=== PATIENT | female | born 1960 | race Caucasian/White ===

== ENCOUNTER → 2016-12-21 06:04 | Day surgery (SDC) | payer BC ==
--- NOTE | 2016-12-11 22:40 | HP ---
HISTORY AND PHYSICAL: DATE OF OFFICE VISIT: 12/11/16 DATE OF ADMISSION/SURGERY: 12/21/16 SURGEON: Nilsa Sr MD PROCEDURE: Left knee arthroscopy with partial meniscectomy, possible chondroplasty, and possible synovectomy. CHIEF COMPLAINT: Left knee pain. HISTORY OF PRESENT ILLNESS: Ms. Carver is a 56-year-old female with complaints of left knee pain. She has failed conservative management and has elected to proceed with left knee arthroscopy with partial meniscectomy, possible chondroplasty, and possible synovectomy. This surgery is scheduled for 12/21/[address] Sr. PAST MEDICAL HISTORY: Hypertension. PAST SURGICAL HISTORY: She had a cyst removed from her left breast. CURRENT MEDICATIONS: 1. Lisinopril. 2. Aspirin. 3. Calcium. 4. Vitamin D. 5. Multivitamin. 6. Claritin. 7. Augmentin. ALLERGIES: SULFA DRUGS. FAMILY HISTORY: Heart disease, diabetes, and an unknown UNION ORGANISER cancer. SOCIAL HISTORY: She is a 56-year-old female. She lives alone. 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 She denies use of drugs. She does not smoke. REVIEW OF SYSTEMS: A complete 14-point review of systems was reviewed with the patient and all was negative or noncontributory. PHYSICAL EXAMINATION GENERAL: She is well developed, well nourished. She is no acute distress. VITAL SIGNS: She stands 5 feet 4 inches tall, weights 225 pounds, her blood pressure is 147/84, and heart rate is 57. HEENT: Normocephalic, atraumatic. NECK: Supple. No palpable lymph nodes. Trachea is midline. PULMONARY: Lungs are clear to auscultation bilaterally. No wheezes, rhonchi, or rales. CARDIO: Regular rate and rhythm. Strong S1, S2. No murmurs, gallops, or rubs. No peripheral edema. ABDOMEN: Soft, nontender, nondistended. NEUROLOGICAL: She is alert and oriented x3. Cranial nerves II through XII are intact. MUSCULOSKELETAL: Left lower extremity, the skin is intact. She has tenderness over the medial and lateral joint line. She has full range of motion. 2+ dorsalis pedis pulses. Her lower extremity muscle group strengths are intact at 5/5. She has intact sensation. ASSESSMENT AND PLAN: Ms. Carver is a 56-year-old female with complaints of a left knee pain. The MRI shows a small tear of the posterior horn of the medial meniscus. She has elected to proceed with left knee arthroscopy with partial meniscectomy, possible chondroplasty, and possible synovectomy. The surgery is scheduled for 12/21/[address] Sr. Percocet was sent to her pharmacy for postoperative pain control. She was asked to stop taking her aspirin 1 week prior to the surgery. She can restart her aspirin on postop day #1. She will see Dr. Sr back in 10 to 14 days after the surgery. YOUSUF NAIK [id number]/[facility] #: [id number] MTDD
[~2016-12-21 06:04] MED LIST: Buffered Lidocaine 1% SYRIN* 3 ML/SYR SYRINGE INTRADERM ONE; Bupivacaine 0.5% SDV PF* 30 ML VIAL ONE; Dexamethasone IV* 4 MG/ML 1 ML (4 MG) IV SLOW PU ONE; Dexamethasone IV* 4 MG/ML 1 ML (4 MG) ONE; DiMENhydriNATE IV* 50 MG/ML VIAL IV PUSH PRN; EPINEPHrine AMP 1 MG/ML ONE; Famotidine IV* 10 MG/ML 2 ML (20 mg) IV ONE; Famotidine IV* 10 MG/ML 2 ML (20 mg) ONE; HYDROmorphone* 1 MG/ML 1 ML SYR IV PRN; HYDROmorphone* 1 MG/ML 1 ML SYR ONE; Ketorolac INJ* 30 MG/ML 1 ML VIAL ONE; Lidocaine 2% PF* 5 ML VIAL ONE; Midazolam* 1 MG/ML 2 ML VIAL (2 MG) ONE; Ondansetron INJ* 2 MG/ML VIAL IV PRN; Ondansetron INJ* 2 MG/ML VIAL ONE; PROCHLORPERAZINE INJ 5 MG/ML 2 ML VIAL IV PRN; Propofol* 10 MG/ML 20 ML BTL IV PUSH ONE; ceFAZolin 2 GM PREMIX(*) 2 GM/50 ML BAG IVPB ONE; fentaNYL* 50 MCG/ML 2 ML VIAL (100 MCG VIAL) ONE; methylPREDNISolone ACETATE 80* 80 MG/ML 1 ML VIAL ONE; oxyCODONE/Acetamin 5/325 MG* TAB ONE
[2016-12-21] MEDS: fentaNYL* 50 MCG/ML 2 ML VIAL (100 MCG VIAL) IV PRN ×2 (09:34→09:48)
[2016-12-21 10:40] VITALS: BP 133/80
--- NOTE | 2016-12-22 02:42 | OP ---
DATE OF OPERATION: 12/21/16 [facility] DATE OF : 56 SURGEON: Nilsa rS MD TWISTHAND: YOUSUF Cerda ANESTHESIOLOGIST: Dr. Patel. ANESTHESIA: General. PRE-OP DIAGNOSES: Left knee pain and medial meniscal tear. POST-OP DIAGNOSES: Left knee pain and medial meniscal tear with anterior synovitis in the medial plica. OPERATIVE PROCEDURE: Left knee arthroscopy with partial medial meniscectomy, anterior synovectomy. INDICATIONS: Ms. Carver is a 56-year-old female who has some mild arthritic changes known on x-ray. She developed posteromedial pain and meniscal-type symptoms. Medial meniscal tear was confirmed on MRI. Due to continued pain and decreased quality of life despite conservative treatment, the patient elected to have left knee arthroscopy with partial medial meniscectomy, possible chondroplasty, and possible synovectomy. Informed consent was obtained from the patient. She understood the risks of surgery included but were not limited to bleeding, infection, damage to nearby structures, continued pain, need for further surgery, stroke, heart attack, blood clot, and . She wished to proceed. COMPLICATIONS: None. EBL: Less than 25 cc. SPECIMEN: None. INTRAOPERATIVE FINDINGS: Intraoperatively, the patient was noted to have a radial- type tear along the posteromedial meniscus. This was in the white- white and white- red zone. She had grade 2 and 3 Outerbridge cartilage changes in the patellofemoral compartment involving the medial and lateral patellar facet. Overall, there were minimal degenerative changes in the joint. Significant amounts of anterior and anteromedial synovitis and a small plica along the anteromedial joint line. DESCRIPTION OF PROCEDURE: Ms. Carver was identified in the preanesthesia unit. Her left lower extremity was marked as the correct operative side. Informed consent was signed and placed in the chart. The patient was taken to the operating room and placed under general anesthesia. The left lower extremity was prepped and draped in the usual sterile fashion. Preop time-out was made to correctly identify the patient, side, and site. Appropriate perioperative antibiotics were given within 1 hour of incision. A 0.5-cm standard anterolateral portal incision was made with a 15 blade and carried down through the capsule. Trocar was introduced. As soon as the light and water sources were turned on, there was immediate visualization of the supra -patellar pouch. A tour of the knee joint was performed. Suprapatellar pouch had no obvious abnormality. Patellofemoral compartment showed some grade 2 and 3 minimal degenerative changes involving the medial and lateral patellar facets. There was a small medial plica. Significant amount of anterior synovitis was noted. The medial compartment showed no significant degenerative changes. Posteromedial meniscus was difficult to visualize. ACL appeared to be intact. The knee was placed in a figure-of-4 position. Lateral compartment showed no significant degenerative changes or meniscal tear. Under direct visualization, a medial portal incision was made with a 15 blade. A probe was introduced. A second tour of the knee joint was performed. There was noted that there was a radial-type tear in the posterior horn of the medial meniscus. This was in the white-white and white-red zone. Straight biter as well as shaver was used to perform partial medial meniscectomy. A smooth border of the meniscus was obtained. A probe confirmed there was no further meniscal tear or displaced fragments. Shaver and radiofrequency ablation wand were used to excise the medial plica and anterior synovitis. The knee was copiously irrigated with sterile saline. All instruments were carefully removed. The incisions were closed using 3-0 nylon suture. An intraarticular injection of 80 mg of Depo-Medrol and 6 cc of 0.25% Marcaine was placed in the knee joint. The patient's incisions were covered with sterile Xeroform, 4x4s, and Webril. Carmelo wrap and cold pack were placed over this. The patient's anesthesia was reversed without difficulty. She was taken to the PACU in stable condition. Intended weightbearing will be weightbearing as tolerated. Intended DVT prophylaxis will be aspirin. The patient will follow up in 2 weeks' time for suture removal. [id number]/[facility] #: [id number] [facility]ITAL[facility]
== END | disposition home or self-care (01) ==
LOC: OR 06:04
PROVIDERS: ATTEND Orthopaedic Surgery Adult Reconstructive Orthopaedic Surgery
DX: M23.204 Derangement of unspecified medial meniscus due to old tear or injury, left knee (principal); M65.862 Other synovitis and tenosynovitis, left lower leg; I10 Essential (primary) hypertension; R00.2 Palpitations
CPT/HCPCS: A9270-GY; J0171; J0690; J1040; J1100; J1170; J1885; J2250; J2405; J2704; J3010

== ENCOUNTER 2018-10-09 09:33 | Inpatient (IN) | payer BC ==
--- NOTE | 2018-09-28 11:41 | HP ---
AMENDED REPORT NOW INCLUDES DESIGNATED COSIGNER HISTORY AND PHYSICAL: DATE OF ADMISSION/SURGERY: 10/09/18 DATE OF OFFICE VISIT: 09/27/18 SURGEON: Nilsa Sr MD.* (DICTATED BY YOUSUF NAIK) PROCEDURE: Left total knee arthroplasty. CHIEF COMPLAINT: Left knee pain. HISTORY OF PRESENT ILLNESS: Ms. Carver is a 58-year-old female with continued complaints of left knee pain. She has failed conservative treatment and elected to proceed with a left total knee arthroplasty. PAST MEDICAL HISTORY: Hypertension. PAST SURGICAL HISTORY: 1. Left knee scope. 2. Appendectomy. 3. Laparoscopy. 4. Left breast growth removal. CURRENT MEDICATIONS: 1. Meloxicam 15 mg daily. 2. Lisinopril/hydrochlorothiazide 10/25 mg. 3. Aspirin 81 mg. 4. Wellbutrin 150 mg. ALLERGIES: To SULFA ANTIBIOTICS and ASPIRIN FULL DOSE. FAMILY HISTORY: Diabetes, coronary artery disease, rheumatoid arthritis, uterine cancer, and stroke. SOCIAL HISTORY: She is a 58-year-old female. She lives with her daughter. She does not smoke or use drugs. Uses occasional alcohol. REVIEW OF SYSTEMS: A complete 14-point review of systems was reviewed with the patient. It was all negative or noncontributory. She denies history of DVT, PE , hepatitis, HIV, or anesthesia problems. PHYSICAL EXAMINATION GENERAL: She is well developed, well nourished, in no acute distress. VITAL SIGNS: She stands 63 inches tall, weighs 236 pounds. Her blood pressure is 132/86. Her heart rate is 72. HEENT: Normocephalic, atraumatic. NECK: Supple. No palpable lymph nodes. PULMONARY: The lungs are clear to auscultation bilaterally. CARDIO: Regular rate and rhythm. Strong S1, S2. ABDOMEN: Soft, nontender, nondistended. NEUROLOGICAL: She is alert and oriented x3. MUSCULOSKELETAL: Left lower extremity: The skin is intact. There are no open wounds or abrasions. She has a moderate joint effusion. Some tenderness over the medial and lateral joint line. Range of motion is 10 to 120 degrees of flexion with patellofemoral crepitus. ASSESSMENT AND PLAN: Ms. Carver is a 58-year-old female with end-stage osteoarthritis of the left knee. She has failed conservative treatment and elected to proceed with a left total knee arthroplasty. The surgery is scheduled for 10/09/[address] Sr discussed the risks and benefits of the surgery at today's visit and all of her questions were answered. She will follow up with Dr. Sr 2 weeks after the surgery. YOUSUF NAIK [id number]/[facility] #: [id number] MTDDayana
[~2018-10-09 09:33] MED LIST changes: +Buffered Lidocaine 1% SYRIN* 1 ML/SYRINGE INTRADERM ONE; -Buffered Lidocaine 1% SYRIN* 3 ML/SYR SYRINGE INTRADERM ONE; -Bupivacaine 0.5% SDV PF* 30 ML VIAL ONE; -Dexamethasone IV* 4 MG/ML 1 ML (4 MG) ONE; -DiMENhydriNATE IV* 50 MG/ML VIAL IV PUSH PRN; -EPINEPHrine AMP 1 MG/ML ONE; -Famotidine IV* 10 MG/ML 2 ML (20 mg) ONE; +Gabapentin CAP(*) 300 MG PO ONE; -HYDROmorphone* 1 MG/ML 1 ML SYR IV PRN; -HYDROmorphone* 1 MG/ML 1 ML SYR ONE; -Ketorolac INJ* 30 MG/ML 1 ML VIAL ONE; +Lactated Ringers 1000 ML Bag* 1,000 ML IV SCH; -Lidocaine 2% PF* 5 ML VIAL ONE; -Midazolam* 1 MG/ML 2 ML VIAL (2 MG) ONE; -Ondansetron INJ* 2 MG/ML VIAL IV PRN; -Ondansetron INJ* 2 MG/ML VIAL ONE; -PROCHLORPERAZINE INJ 5 MG/ML 2 ML VIAL IV PRN; -Propofol* 10 MG/ML 20 ML BTL IV PUSH ONE; +Scopolamine 1.5 mg* PATCH TRANSDERM ONE; +Tranexamic Acid 1,000 MG in NS 0.9% 50 ML* (outpatient use) IV SCH; -ceFAZolin 2 GM PREMIX(*) 2 GM/50 ML BAG IVPB ONE; +celeCOXIB CAP* 200 MG PO ONE; -fentaNYL* 50 MCG/ML 2 ML VIAL (100 MCG VIAL) ONE; -methylPREDNISolone ACETATE 80* 80 MG/ML 1 ML VIAL ONE; -oxyCODONE/Acetamin 5/325 MG* TAB ONE
[2018-10-09] MEDS ORDERED: fentaNYL* 50 MCG/ML 2 ML VIAL (100 MCG VIAL) ONE ×4 (09:37→14:37)
[2018-10-09] MEDS ORDERED: Midazolam* 1 MG/ML 2 ML VIAL (2 MG) ONE (09:37)
--- OUTSIDE RECORDS SUMMARY | 2018-10-09 09:37 | XMS REPORT | Continuity of Care Document ---
:1960 External Reference #:[id number] Author Name Maria Felix Care Team Providers Name Role Phone Aleyda Hernandez FNP Primary Care Physician Unavailable Payers Type Date Identification Numbers Payment Provider Subscriber Effective: 2016 Policy Number: [id number] [facility] Holly Carver PayID: [id number] [address] [place] [address] Advance Directives Description No Information Available Problems Date Description Provider Status Onset: 08/30/2016 Localized, primary osteoarthritis Nilsa Sr M.D. 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 every day Lisinopril Active Tablets 10mg 1 by Unknown 00 mouth every day Bupropion HCL Active Unknown 00 Percocet 12/12/19 Hx Tablets 5-325mg 60tabs 1-2 by Nilsa 17 - raj Sr M.D. 02/02/20 every 4-6 17 hours as needed pain Naproxen 08/30/20 Hx Tablets 500mg 30tabs 1 tablet M25.562 Nilsa 16 - with food Alicia Sr 02/02/20 by mouth 17 twice a day Aspirin Hx 1 by Unknown 00 - mouth 07/28/20 every day 18 Calcium + D Hx Unknown 07/28/20 18 Multivitamin Hx Unknown 07/28/20 18 Claritin Hx Unknown 07/28/20 18 Augmentin Hx Unknown 02/02/20 17 Vitamin D Hx Unknown 07/28/20 18 Fluid Pill Hx Unknown 09/26/19 19 Immunizations Description No Information Available Vital Signs Date Vital Result Comment 09/27/2018 3:09pm Height 62.75 inches 5'2.75" Weight 236.00 lb Heart Rate 72 /min BP Systolic 132 mmHg BP Diastolic 86 mmHg Respiratory Rate 18 /min Body Temperature 97.9 F Pain Level 0 BMI (Body Mass Index) 42.1 kg/m2 08/28/2018 8:18am Height 62.75 inches 5'2.75" Weight 236.00 lb Heart Rate 88 /min BP Systolic 126 mmHg BP Diastolic 80 mmHg BMI (Body Mass Index) 42.1 kg/m2 07/29/2018 11:17am Height 62.75 inches 5'2.75" Weight 234.00 lb Heart Rate 88 /min BP Systolic 130 mmHg BP Diastolic 78 mmHg BMI (Body Mass Index) 41.8 kg/m2 02/02/2017 8:02am Height 63.5 inches 5'3.50" Weight 225.00 lb Heart Rate 73 /min BP Systolic 138 mmHg BP Diastolic 90 mmHg Pain Level 0 BMI (Body Mass Index) 39.2 kg/m2 01/03/2017 8:11am Height 64 inches 5'4" Heart Rate 64 /min BP Systolic Sitting 104 mmHg BP Diastolic Sitting 72 mmHg Respiratory Rate 16 /min Body Temperature 97.6 F Pain Level 0 12/11/2016 9:19am Height 64 inches 5'4" Weight 226.00 lb Heart Rate 57 /min BP Systolic 147 mmHg BP Diastolic 84 mmHg Body Temperature 97.5 F BMI (Body Mass Index) 38.8 kg/m2 11/01/2016 9:17am Height 64.25 inches 5'4.25" Weight 220.00 lb Heart Rate 72 /min BP Systolic 128 mmHg BP Diastolic 70 mmHg Pain Level 8 BMI (Body Mass Index) 37.5 kg/m2 10/02/2016 8:12am Height 64.25 inches 5'4.25" Heart Rate 64 /min BP Systolic 126 mmHg BP Diastolic 76 mmHg Pain Level 3 08/30/2016 8:01am Height 64.25 inches 5'4.25" Weight 229.00 lb Heart Rate 71 /min BP Systolic 128 mmHg BP Diastolic 68 mmHg BMI (Body Mass Index) 39.0 kg/m2 Results Test Date Facility Test Result H/L Range Note Inr/Protime 09/30/2018 [facility] Inr 0.94 N 0.77-1.[address] [place] [address] [phone] Laboratory test 09/30/2018 [facility] Partial 34.4 seconds N 26.0-36.[address] [address] PTT [phone] CBC Auto Diff 09/30/2018 [facility] White Blood 7.4 10^3/uL N 3.5-10.[address] [place] [address] [phone] Red Blood Count 4.46 10^6/uL N 4.00-5.40 Hemoglobin 14.5 g/dL N 12.0-16.0 Hematocrit 44 % N 35-47 Mean Corpuscular Volume 99 fL High 80-97 Mean Corpuscular Hemoglobin 33 pg High 27-31 Mean Corpuscular HGB Conc 33 g/dL N 31-36 Red Cell Distribution Width 13 % N 10.5-15 Platelet Count 272 10^3/uL N 150-450 Mean Platelet Volume 8.1 fL N 7.4-10.4 Abs Neutrophils 4.2 10^3/uL N 1.5-7.7 Abs Lymphocytes 2.2 10^3/uL N 1.0-4.8 Abs Monocytes 0.6 10^3/uL N 0-0.8 Abs Eosinophils 0.3 10^3/uL N 0-0.6 Abs Basophils 0 10^3/uL N 0-0.2 Abs Nucleated RBC 0 10^3/uL Granulocyte % 57.0 % Lymphocyte % 30.3 % Monocyte % 8.2 % Eosinophil % 4.0 % Basophil % 0.5 % Nucleated Red Blood Cells % 0 Comp Metabolic Panel 09/30/2018 [facility] Sodium 140 mmol/L N 135-145 [address] [place] [address] [phone] Potassium 4.5 mmol/L N 3.5-5.0 Chloride 103 mmol/L N 101-111 Co2 Carbon Dioxide 27 mmol/L N 22-32 Anion Gap 10 mmol/L N 2-11 Glucose 102 mg/dL High 70-100 Blood Urea Nitrogen 25 mg/dL High 6-24 Creatinine 0.83 mg/dL N 0.51-0.95 BUN/Creatinine Ratio 30.1 High 8-20 Calcium 9.7 mg/dL N 8.6-10.3 Total Protein 7.8 g/dL N 6.4-8.9 Albumin 4.4 g/dL N 3.2-5.2 Globulin 3.4 g/dL N 2-4 Albumin/Globulin Ratio 1.3 N 1-3 Total Bilirubin 0.40 mg/dL N 0.2-1.0 Alkaline Phosphatase 80 U/L N 34-104 Alt 47 U/L N 7-52 Ast 30 U/L N 13-39 Egfr Non- 70.1 >60 Egfr 84.8 >60 1 Type & Screen 09/30/2018 [facility] Patient Blood Type A Negative [address] [place] [address] [phone] Antibody Screen NEGATIVE Urinalysis Profile 09/30/2018 [facility] Urine Color Yellow [address] [place] [address] [phone] Urine Appearance Clear Urine Specific [place] 1.019 N 1.010-1.030 Urine pH 6.0 N 5-9 Urine Urobilinogen Negative Negative Urine Ketones Negative Negative Urine Protein Negative Negative Urine Leukocytes Negative Negative Urine Blood Negative Negative Urine Nitrite Negative Negative Urine Bilirubin Negative Negative Urine Glucose Negative Negative Urine Culture And 09/30/2018 [facility] Urine Culture SEE RESULT [address] [place] [address] [phone] 1 Because ethnic data is not always readily available, this report includes an eGFR for both -Americans and non- Americans. The National Kidney Disease Education Program (NKDEP) does not endorse the use of the MDRD equation for patients that are not between the ages of 18 and 70, are , have extremes of body size, muscle mass, or nutritional status, or are non- or non-. According to the National Kidney Foundation, irrespective of diagnosis, the stage of the disease is based on the level of kidney function: Stage Description GFR(mL/min/1.73 m(2)) 1 Kidney damage with normal or decreased GFR 90 2 Kidney damage with mild decrease in GFR 60-89 3 Moderate decrease in GFR 30-59 4 Severe decrease in GFR 15-29 5 Kidney failure <15 (or dialysis) 2 SEE RESULT BELOW Name: HOLLY CARVER : [address]: Nilsa Sr MD Acct: [id number] Unit: [id number] AGE: 58 Location: [facility] Re09/30/18 SEX: F Status: REG REF SPEC: [id number] HAILY: 09/30/[address] [facility] [address]: Nilsa Sr MD REQ: [id number] RECD: 09/30/181014 STATUS: SIENA FISHER DR: Aleyda Hernandez GLOBAL RECRUITER _ SOURCE: URINE SPDESC: ORDERED: Urine Culture QUERIES: Urine Source: Clean Catch Procedure Result Reported Site Urine Culture Final 10/01/18- 901 ML No growth of clinically significant organisms * ML - Main Lab . END OF REPORT DEPARTMENT OF PATHOLOGY, [address] [place] [address] Albert Iverson M.D. Director [facility] # [id number] Procedures Date Code Description Status 12/21/2016 59304 Arthroscopy,Knee,Meniscectomy Medial Or Lateral Completed 12/21/2016 69356 Arthroscopy,Knee,Meniscectomy Medial Or Lateral Completed 10/11/2015 12841 Treadmill Interp/Report Only Completed 10/11/2015 61978 Stress Test Supervsn W/Out I/R Completed Encounters Type Date Location Provider Dx Diagnosis Office Visit 08/28/2018 Orthopedic Nilsa Sr, M25.462 Effusion, left 8:15a [facility] GianALeila Vargas knee M25.562 Pain in left knee M17.12 Unilateral primary osteoarthritis, left knee Office Visit 07/29/2018 11:00a Orthopedic Nilsadavid Sr, M25.462 Effusion, left [facility]Leila knee [facility] M25.562 Pain in left knee M17.12 Unilateral primary osteoarthritis, left knee Office Visit 11/01/2016 Orthopedic Nilsa M17.12 Unilateral primary 9:15a [facility] Alicia Sr osteoarthritis, left [facility] knee M25.562 Pain in left knee M25.462 Effusion, left knee S83.242A Oth tear of medial meniscus, current injury, left knee, init Office Visit 10/02/2016 Orthopedic Nilsa M17.12 Unilateral primary 8:00a [facility] Alicia Sr osteoarthritis, left [facility] knee M25.562 Pain in left knee Office Visit 08/30/2016 8:30a [facility] Nilsa Sr M25.562 Pain in left Of C.M.Juana. FlakitoDLeila knee M25.462 Effusion, left knee M17.12 Unilateral primary osteoarthritis, left knee Office Visit 10/11/2015 [facility] R07.2 Precordial pain 8:52a Assocvianey II, M.D. Hospitalists I10 Essential (primary) hypertension Plan of Treatment Future Appointment(s):10/21/2018 10:15 am - Nilsa Sr M.D. at [facility]10/09/2018 1:30 pm - CARISA Gongora at [facility]10/09/2018 1:30 pm - YOUSUF Jeter at [facility]10/09/2018 1:30 pm - Nilsa Sr M.D. at [facility]09/27/2018 - Nilsa Sr M.D.M25.462 Effusion, left kneeFollow up:Follow up: 10-14 days xervjqF63.562 Pain in left kneeM17.12 Unilateral primary osteoarthritis, left knee
--- OUTSIDE RECORDS SUMMARY | 2018-10-09 09:37 | XMS REPORT | Continuity of Care Document ---
:1960 External Reference #:[id number] Author Name Brady Dahiana Care Team Providers Name Role Phone Aleyda Hernandez FNP Primary Care Physician Unavailable Payers Type Date Identification Numbers Payment Provider Subscriber Effective: 2016 Policy Number: [id number] [facility] Holly Carver PayID: [id number] [address] [place] [address] Advance Directives Description No Information Available Problems Date Description Provider Status Onset: 08/30/2016 Localized, primary osteoarthritis Nilsa Sr M.D. 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 05/11/20 every 4-6 17 hours as needed pain [...] BMI (Body Mass Index) 39.0 kg/m2 Results Description No Information Available Procedures Date Code Description Status 12/21/2016 93751 Arthroscopy,Knee,Meniscectomy Medial Or Lateral Completed 12/21/2016 52018 Arthroscopy,Knee,Meniscectomy Medial Or Lateral Completed 10/11/2015 61743 Treadmill Interp/Report Only Completed 10/11/2015 01824 Stress Test Supervsn W/Out I/R Completed Encounters Type Date Location Provider Dx Diagnosis Office Visit 08/28/2018 Bret Briceno5.462 Effusion, left 8:15a [facility] Glenna Vargas knee M25.562 Pain in left knee M17.12 Unilateral primary osteoarthritis, left knee Office Visit 07/29/2018 11:00a Orthopedic Bret Morales5.462 Effusion, left Services Leon Vargas knee [facility] M25.562 Pain in left knee M17.12 Unilateral primary osteoarthritis, left knee Office Visit 11/01/2016 Orthopedic Nilsa M17.12 Unilateral primary 9:15a Services [facility] Alicia Sr osteoarthritis, left [facility]. knee M25.562 Pain in left knee M25.462 Effusion, left knee S83.242A Oth tear of medial meniscus, current injury, left knee, init Office Visit 10/02/2016 Mian Ash M17.12 Unilateral primary 8:00a Services Of Alicia Sr osteoarthritis, left [facility]. knee M25.562 Pain in left knee Office Visit 08/30/2016 8:30a [facility] Nilsa Remberto, M25.562 Pain in left Of C.M.Sugey Vargas knee M25.462 Effusion, left knee M17.12 Unilateral primary osteoarthritis, left knee [facility] R07.2 Precordial pain 8:52a vianey Sandoval II, M.D. Hospitalists I10 Essential (primary) hypertension Plan of Treatment Future Appointment(s):10/21/2018 10:15 am - Nilsa Sr M.D. at [facility]10/09/2018 1:30 pm - CARISA Gongora at [facility]10/09/2018 1:30 pm - YOUSUF Jeter at [facility]10/09/2018 1:30 pm - Nilsa Sr M.D. at [facility]09/27/2018 - Nilsa Sr M.D.M25.462 Effusion, left kneeFollow up:Follow up: 10-14 days ryqnvyW82.562 Pain in left kneeM17.12 Unilateral primary osteoarthritis, left knee
[2018-10-09] MEDS ORDERED: Famotidine IV* 10 MG/ML 2 ML (20 mg) ONE (10:03)
[2018-10-09] MEDS ORDERED: celeCOXIB CAP* 100 MG ONE (10:03)
[2018-10-09] MEDS ORDERED: Dexamethasone IV* 4 MG/ML 1 ML (4 MG) ONE (10:03)
[2018-10-09] MEDS ORDERED: Gabapentin CAP(*) 300 MG ONE (10:04)
[2018-10-09] MEDS ORDERED: ceFAZolin 2 GM PREMIX in ORs 2 GM/50 ML BAG IVPB ONE (10:04)
[2018-10-09] MEDS ORDERED: Buffered Lidocaine 1% SYRIN* 1 ML/SYRINGE INTRADERM ONE (10:04)
[2018-10-09] MEDS ORDERED: Scopolamine 1.5 mg* PATCH ONE (10:04)
[2018-10-09] MEDS ORDERED: Morphine VIAL* 4 MG/ML VIAL (1 ml vial) IV PRN ×2 (10:18→13:44)
[2018-10-09] MEDS ORDERED: Naloxone* 0.4 MG/ML 1 ML VIAL IV PRN (10:18)
[2018-10-09] MEDS ORDERED: oxyCODONE/Acetamin 5/325 MG* TAB PO PRN ×2 (10:18→13:58)
[2018-10-09] MEDS ORDERED: PROCHLORPERAZINE INJ 5 MG/ML 2 ML VIAL IV PRN (10:18)
[2018-10-09] MEDS ORDERED: Bupivacaine 0.5%* 50 ML VIAL ONE (10:31)
[2018-10-09] MEDS ORDERED: ROPIVACAINE 5 MG/ML 30 ML BTL (0.5%) ONE (10:45)
[2018-10-09] MEDS ORDERED: Propofol* 10 MG/ML 20 ML BTL ONE (11:16)
[2018-10-09] MEDS ORDERED: Lidocaine 2% PF * 5 ML VIAL ONE (11:16)
[2018-10-09] MEDS ORDERED: EPHEDrine (Pressors)* 50 MG/ML VIAL ONE (11:27)
[2018-10-09] MEDS ORDERED: KETAMINE HCL* 50 MG/ML 10 ML VIAL ONE (11:31)
[2018-10-09] MEDS ORDERED: Ondansetron INJ* 2 MG/ML VIAL ONE (12:46)
[2018-10-09] MEDS ORDERED: Cyclobenzaprine TAB* 10 MG PO PRN (13:44)
[2018-10-09] MEDS ORDERED: Magnesium Hydroxide LIQ* 30 ML UDC PO PRN (13:44)
[2018-10-09] MEDS ORDERED: diPHENhydraMINE PO* 25 MG PO PRN (13:44)
[2018-10-09] MEDS ORDERED: Ondansetron INJ* 2 MG/ML VIAL IV PRN (13:44)
[2018-10-09] MEDS ORDERED: traMADol TAB* 50 MG PO PRN (13:44)
[2018-10-09] MEDS ORDERED: diPHENhydraMINE IV* 50 MG/ML 1 ml VIAL (BENADRYL) IV PRN (13:44)
[2018-10-09] MEDS ORDERED: Bisacodyl SUPP* 10 MG SUPP PR PRN (13:49)
[2018-10-09] MEDS ORDERED: Polyethylene Glycol 3350* 17 GM PACKET PO PRN (13:49)
[2018-10-09] MEDS: fentaNYL* 50 MCG/ML 2 ML VIAL (100 MCG VIAL) IV PRN ×2 (14:08→14:16)
[2018-10-09] MEDS ORDERED: oxyCODONE/Acetamin 5/325 MG* TAB ONE (15:00)
[2018-10-09] MEDS: Lactated Ringers 1000 ML Bag* 1,000 ML IV SCH (15:49)
[2018-10-09] MEDS: Acetaminophen TAB* 325 MG PO SCH (16:32)
[2018-10-09] MEDS: oxyCODONE TAB* 5 MG TAB PO PRN ×2 (16:57→21:56)
[2018-10-09] MEDS ORDERED: Warfarin TAB(*) 6 MG PO ONE (17:00)
[2018-10-09] MEDS: oxyCODONE/Acetamin 5/325 MG* TAB PO PRN (19:15)
[2018-10-09] MEDS: ceFAZolin 1 GM ADVAN(*) 1 GM in NS 0.9% 50 ML* 50 ML IVPB SCH (19:15)
--- NOTE | 2018-10-09 20:39 | CONS ---
CC: Dr. Rene Edwards * CONSULTATION REPORT: DATE OF CONSULT: 10/09/18 PRIMARY CARE PROVIDER: Dr. Rene Edwards ATTENDING WHILE IN THE HOSPITAL: Dr. Anil Rodarte. REASON FOR CONSULTATION: Co-management of comorbid medical conditions. HISTORY OF PRESENT ILLNESS: Ms. Carver is a 58-year-old female with past medical history significant only for hypertension and osteoarthritis, who underwent left total knee arthroplasty for end-stage osteoarthritis after failing outpatient treatment. The patient has been feeling well to this point. The patient has not taken meloxicam or aspirin in 7 days per instructions from her doctor. The patient took her Zestoretic the night before the surgery. The patient denies any recent fever, chills, or other illnesses. No recent changes in her medications. The patient does not have any shortness of breath or chest pain before the surgery. The patient is currently asymptomatic except for a pain of 6/10 in her left knee. The patient denies palpitations or dizziness. The patient denies dysuria, cough, or other signs of infection before the surgery. The patient had a general anesthesia and a block. The patient had an EBL of 150 mL. The patient otherwise is doing well. PAST MEDICAL HISTORY: Hypertension, osteoarthritis. PAST SURGICAL HISTORY: Left knee arthroscopy, appendectomy, laparoscopy with adhesiotomy, left breast growth removal. MEDICATIONS: 1. Meloxicam. 2. Lisinopril/hydrochlorothiazide 10/25 one tab p.o. daily. 3. Aspirin 81 mg p.o. daily. 4. Wellbutrin 150 mg p.o. daily. 5. Vitamin D 1000 units p.o. daily 6. Loratadine 10 mg p.o. daily. ALLERGIES: SULFA, ASPIRIN. FAMILY HISTORY: The patient's father of liver and kidney disease. The patient's mother had an OH. The patient's brother also had an OH. The patient also has miscellaneous family history of diabetes, rheumatoid arthritis, uterine cancer, and stroke. SOCIAL HISTORY: The patient does not smoke or use drugs. The patient is not . The patient's surrogate decision maker will be her daughter, Cherie Gale or her friend, Christy Valentino. The patient rarely uses alcohol and denies any smoking or illicit drug use. 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 REVIEW OF SYSTEMS: A 14-point review of systems was reviewed and was negative except as above in the HPI. PHYSICAL EXAM: General: The patient is a 58-year-old female who appears stated age and sitting comfortably in bed, in no distress. HEENT: Head is normocephalic, atraumatic. Sclerae anicteric. No conjunctival injection. Nasal mucosa moist. Oral mucosa moist. No pharyngeal erythema, discharge, or exudate. Vital Signs: Temperature 98.1, pulse rate 79, respiratory rate 27, oxygen saturation 98% on room air, blood pressure 145/86. Neck: Supple, nontender. No lymphadenopathy. No carotid bruits auscultated. No JVD. Cardiac: Regular rate and rhythm. No clicks, murmurs, gallops, or rubs. Pulses are 2+ in the bilateral dorsalis pedis, posterior tibialis and radialis areas. Respiratory: Clear to auscultation bilaterally. No wheezes or rhonchi. Good air exchange bilaterally. Abdomen: Soft, nontender, nondistended. Bowel sounds present and normoactive in all 4 quadrants. No hepatosplenomegaly. No abdominal bruits auscultated. No hepatojugular reflux. Genitourinary: No suprapubic or CVA tenderness. Skin: Clean, dry, and intact. No rash. Left knee covered with a large bandage. Neuro: Cranial nerves II through XII are intact. No other focal neurologic deficits. Alert and oriented x3. Good sensation distally to the surgery. Psychiatric: Pleasant and cooperative. DIAGNOSTIC STUDIES/LAB DATA: Laboratory data from preoperative blood work: Hemoglobin 14.5, platelet count 272, white blood cell count 7.4. INR 0.94 and aPTT is 34.4. Sodium 140, potassium 4.5, chloride 103, carbon dioxide 27, anion gap 10, BUN 25, creatinine 0.83, glucose 102, lactic acid 0.9, calcium 9.7 , bilirubin 0.4, AST 30, ALT 47, alkaline phosphatase 80, troponin I 0.00, protein 7.8, albumin 4.4, globulin 3.4. IMPRESSION: Ms. Carver is a 58-year-old female with past medical history significant only for hypertension and osteoarthritis, who underwent a left total knee arthroplasty and is doing well. 1. Status post left total knee arthroplasty. The patient is doing well. Management per Orthopedics. The patient should engage in physical therapy and occupational therapy. The patient has DVT prophylaxis per routine. The patient will be restarted on her aspirin when cleared. The patient should have her H and H trended. The patient's EBL was minimal. The patient will have her Zestoretic restarted tomorrow evening, 10/10/18. This will be changed to earlier if the patient's vital signs necessitated. 2. Hypertension. Zestoretic as above. 3. DVT prophylaxis. Per Orthopedics, Lovenox to warfarin. 4. Fluids, electrolytes, and nutrition The patient will have fluids until able to tolerate adequate orals. The patient will have a regular unrestricted diet. 5. Disposition: Per Orthopedics. 6. Code status: The patient will be a full code. TIME SPENT: Approximately 60 minutes was spent is consultation, 30 of which was spent in [id number] with the patient obtaining history and physical and discussing the treatment plan. Plan was discussed with my attending, Dr. Anil Rodarte, he is in agreement. YOUSUF SILVA [id number]/[facility] #: [id number] NIKI
[2018-10-09] MEDS ORDERED: BuPROPion XL* 150 MG TAB.XL PO SCH (21:00)
[2018-10-09] MEDS ORDERED: Cetirizine* 10 MG TAB PO SCH (21:00)
[2018-10-09] MEDS ORDERED: Lisinopril/HCTZ 10/12.5(NF) TAB PO SCH (21:00)
--- NOTE | 2018-10-09 21:46 | OP ---
DATE OF OPERATION: 10/09/18 - ROOM #343 DATE OF : 56 ATTENDING SURGEON: Nilsa Sr MD AERONAUTICAL RESEARCH ENGINEER: YOUSUF Ernst. Ms. Heath did help throughout the procedure with preparation of the leg, wound retraction, manipulation of the knee, and wound closure. ANESTHESIOLOGIST: Dr. Puga. ANESTHESIA: General. PRE-OP DIAGNOSIS: Severe end-stage degenerative osteoarthritis of the left knee joint. POST-OP DIAGNOSIS: Severe end-stage degenerative osteoarthritis of the left knee joint. OPERATIVE PROCEDURE: Left total knee arthroplasty. TOURNIQUET TIME: 53 minutes. COMPLICATIONS: None. SPECIMEN: Bone and cartilage from the left knee joint sent to Pathology. ESTIMATED BLOOD LOSS: 200 cc. HARDWARE USED: This is cemented [employer] total knee arthroplasty hardware. Two packages of Simplex bone cement. For the femur, a left size 5 narrow Legion Oxinium posterior stabilized femoral component. For the tibia, a left size 3 Pratibha II tibial base plate. For the insert, a 9 mm posterior stabilized articular insert, size 3-4. For the patella, a 32-mm 3-peg all-poly patella with 7.5 thickness. BRIEF HISTORY/INDICATION: Ms. Carver is a 58-year-old female with years of increasingly severe left knee pain. She failed conservative treatment with antiinflammatories, pain medication, intraarticular injection, and physical therapy. Due to continued pain and decreased quality of life, she elected to undergo left total knee arthroplasty. Informed consent was obtained from the patient. She understood the risks of surgery included, but were not limited to , bleeding, infection, damage to nearby structures, continued pain, need for further surgery, intraoperative fracture, nerve palsy, hardware failure or loosening, knee stiffness, loss of motion, stroke, heart attack, blood clot, and . She wished to proceed. INTRAOPERATIVE FINDINGS: Intraoperatively, the patient was noted to have severe end-stage arthritis with tricompartmental complete loss of cartilage. DESCRIPTION OF PROCEDURE: Ms. Carver was identified in the preanesthesia unit. Her left lower extremity was marked as the correct operative side. Informed consent was signed and placed in the chart. The patient was taken to the operating room and placed under general anesthesia. A Berkowitz catheter was placed. Tourniquet was placed on the left thigh. Left lower extremity was prepped and draped in the usual sterile fashion. Preop time-out was made to correctly identify the patient's side and site. Appropriate perioperative antibiotics were given within 1 hour of incision. Tourniquet was inflated. A midline incision was made with a 10 blade and carried down to the extensor mechanism. A new 10 blade was used to make a standard medial parapatellar arthrotomy. The patella was then subluxed laterally. Electrocautery was used to subperiosteally elevate the soft tissue off the superomedial tibia to the mid sagittal plane. The knee was flexed up. The anterior horn of the lateral meniscus and ACL were sharply released. A drill was used to enter the distal femur. Intramedullary distal femoral cutting guide was pinned on the distal femur. Oscillating saw was used to make the distal femoral cut. Next, the external rotation guide was pinned on the distal femur. Distal femur was sized to a size 5. Size 5 multi-cutting jig was pinned on the distal femur. Oscillating saw was used to make the appropriate 4-chamfer cuts. PCL was completely released. The tibia was subluxed anteriorly. Extramedullary tibial cutting guide was pinned on the proximal tibia. Oscillating saw was used to make the proximal tibial cut. The bone was carefully removed. The knee was brought out into full extension. A lamina domestic freight forwarder had good fit with the knee in full extension. Medial and lateral ligaments were well balanced. Flexion and extension gaps were well balanced. The knee was flexed up. Lamina domestic freight forwarder was placed both medially and laterally. Any remaining meniscus was sharply removed using electrocautery. Curved osteotome was used to remove any posterior osteophytes. Tibial tray and drop preet were placed and once again confirmed a satisfactory tibial cut. A size 5 narrow left femoral trial was impacted on to the distal femur and had excellent stability. The box for the posterior stabilized implant was prepared using a reamer and box cut osteotome. Size 3 tibial tray trial with a 9 mm insert trial was placed and the knee was taken through range of motion. The knee had full extension to 130 degrees of flexion with satisfactory patellofemoral tracking. The patella was everted. 7 mm of patellar bone and cartilage was carefully removed using an oscillating saw. Patella was sized to a size 32. Three peg holes were drilled through the size 32 guide. 32 trial patella was placed and the knee was taken through range of motion. There was satisfactory patellofemoral tracking. All trials were removed. Tibia was subluxed anteriorly and sized to a size 3. Proximal tibia was prepared using a size 3 keel punch. All bony cut surfaces were copiously irrigated with sterile saline and dried. Final implants were cemented into place starting with the tibia, followed by the femur, and last the patella. A 9 mm insert trial was placed and the knee was brought out into full extension. Tourniquet was turned down and the knee was copiously irrigated with sterile saline. Electrocautery was used to obtain meticulous hemostasis. Once the cement had fully cured, the insert trial was removed. Any excess cement was removed from around the capsule and hardware. Final insert chosen was an 9 mm posterior stabilized articular insert, 3-4. This was locked into position on the tibial tray. Stability of the insert was checked and rechecked and noted to be stable. The extensor mechanism was closed using interrupted #1 Vicryl. The rest of the incision was closed in a layered fashion using 0 and 2-0 Vicryl. Skin was closed using running 3-0 nylon suture. Sterile Xeroform, 4x4s , and Webril was used to cover the incision. Carmelo wrap and cold pack were placed over this. The patient's anesthesia was reversed without difficulty. She was taken to the PACU in stable condition. Intended weightbearing will be weightbearing as tolerated. Intended DVT prophylaxis will be Coumadin with a Lovenox bridge. [id number]/[facility] #: [id number] NIKI
[2018-10-09] MEDS: Magnesium Hydroxide LIQ* 30 ML UDC PO SCH (21:56)
[2018-10-09] MEDS: Docusate CAP* 100 MG PO SCH (21:56)
[2018-10-10] MEDS: Acetaminophen TAB* 325 MG PO SCH ×3 (00:24→16:48)
[2018-10-10] MEDS: oxyCODONE/Acetamin 5/325 MG* TAB PO PRN ×5 (00:29→15:53)
[2018-10-10] MEDS: Lactated Ringers 1000 ML Bag* 1,000 ML IV SCH (01:31)
[2018-10-10] MEDS: ceFAZolin 1 GM ADVAN(*) 1 GM in NS 0.9% 50 ML* 50 ML IVPB SCH ×2 (03:01→11:26)
[2018-10-10] MEDS: oxyCODONE TAB* 5 MG TAB PO PRN ×3 (03:02→14:00)
[2018-10-10 06:24] LABS: INR 1.03 (0.77-1.02)
[2018-10-10 06:30] LABS: Calcium 8.9 mg/dL (8.6-10.3); EGFR African American 81.4 (>60); EGFR Non-African American 67.3 (>60); Potassium 4.2 mmol/L (3.5-5.0)
[2018-10-10 06:35] LABS: Hematocrit 37 % (35-47); Hemoglobin 12.2 g/dl (12.0-16.0); Platelet Count 248 10^3/ul (150-450)
[2018-10-10] MEDS ORDERED: Vitamin THERAPEUTIC TAB PO SCH (09:00)
[2018-10-10] MEDS ORDERED: Enoxaparin(*) 40 MG/0.4 ML SYR SUBCUT SCH (09:00)
[2018-10-10] MEDS: Docusate CAP* 100 MG PO SCH (09:04)
[2018-10-10] MEDS: Magnesium Hydroxide LIQ* 30 ML UDC PO SCH (09:04)
--- NOTE | 2018-10-10 15:56 | PN ---
Progress Note - Progress Note Date of Service: 10/10/18 SOAP: Subjective: []Patient was seen and examined at bedside. She feels well without CP, SOB, dizziness, nausea. LLE pain is well controlled and she desires DC to home. Objective: []General: Well appearing, NAD LLE: L Knee dressing changed, incision CDI without erythema or discharge. Thigh is soft, DF/PF intact, DP2+, sensation intact to light touch distally though decreased sensation of the anterior castle with normal sensation throughout the foot. Calves supple and nontender without erythema, edema or palpable cords Assessment: []POD 1 sp left total knee arthroplasty 10/08 Dr Sr Plan: []WBAT PT/OT Eliquis 2.5 mg po BID x 30 days to start tonight DC to home today if insurance approval of home services, otherwise DC tomorrow when alternative plans are set Vital Signs Temp 98.2 F 10/10/18 11:49 Pulse 73 10/10/18 11:49 Resp 16 10/10/18 15:53 BP 140/75 10/10/18 11:49 Pulse Ox 98 10/10/18 11:49 Intake & Output 10/09/18 10/10/18 10/10/18 18:59 06:59 18:59 Intake Total 7936 587 4958 Output Total 200 2600 600 Balance 1700 -1865 1037 Weight 229 lb Intake: IV Fluids 1900 55 787 ABX - CEFAZOLIN 55 55 LR 1900 732 Oral 680 850 Output: Urine 600 Berkowitz 200 2600 Other: # Bowel Movements 0 Estimated Blood Loss <100 Comment Laboratory Last Values Hgb 12.2 g/dl (12.0-16.0) 10/10/18 06:02 Hct 37 % (35-47) 10/10/18 06:02 Plt Count 248 10^3/ul (150-450) 10/10/18 06:02 MPV 8.0 fL (7.4-10.4) 10/10/18 06:02 INR (Anticoag Therapy) 1.03 (0.77-1.02) H 10/10/18 06:02 Sodium 137 mmol/L (135-145) 10/10/18 06:02 Potassium 4.2 mmol/L (3.5-5.0) 10/10/18 06:02 Chloride 101 mmol/L (101-111) 10/10/18 06:02 Carbon Dioxide 28 mmol/L (22-32) 10/10/18 06:02 Anion Gap 8 mmol/L (2-11) 10/10/18 06:02 BUN 12 mg/dL (6-24) 10/10/18 06:02 Creatinine 0.86 mg/dL (0.51-0.95) 10/10/18 06:02 Est GFR ( Amer) 81.4 (>60) 10/10/18 06:02 Est GFR (Non-Af Amer) 67.3 (>60) 10/10/18 06:02 BUN/Creatinine Ratio 14.0 (8-20) 10/10/18 06:02 Glucose 128 mg/dL (70-100) H 10/10/18 06:02 Calcium 8.9 mg/dL (8.6-10.3) 10/10/18 06:02
[2018-10-10 16:43] VITALS: BP 127/67
[2018-10-10] MEDS ORDERED: Apixaban* 2.5 MG TAB PO SCH (21:00)
[2018-10-10] MEDS ORDERED: Lisinopril TAB* 10 MG PO SCH (21:00)
[2018-10-10] MEDS ORDERED: Hydrochlorothiazide TAB* 25 MG PO SCH (21:00)
--- NOTE | 2018-10-11 01:01 | DS ---
DISCHARGE SUMMARY: DATE OF ADMISSION: 10/09/18 DATE OF DISCHARGE: 10/10/18 PROVIDER: Dr. Nilsa Sr.* (DICTATED BY YOUSUF BLUE) PRE-OP DIAGNOSIS: Severe end-stage degenerative osteoarthritis of the left knee joint. OPERATIVE PROCEDURE: Left total knee arthroplasty. HISTORY: Ms. Carver is a 58-year-old female with years of increasingly severe left knee pain. She failed conservative management and elected to undergo a left total knee arthroplasty. HOSPITAL COURSE: The patient was admitted to [facility] on . She underwent a left total knee arthroplasty without complication. Postop day 1, she was well appearing, in no acute distress. Left knee dressing was changed. Incision clean, dry, and intact without surrounding erythema or edema. Dorsiflexion and plantarflexion intact. DP 2+. Sensation intact to light touch distally. Vital signs: Temperature 98.2, pulse 73, respiratory rate 16, blood pressure 140/75, pulse ox 98. Laboratory values: Hemoglobin 12.2, hematocrit 37. INR 1.03. She was seen by our hospitalist service during her stay for management of hypertension. No changes to her blood pressure medications. She was deemed medically and orthopedically stable for discharge home. DISCHARGE MEDICATIONS: Include: 1. Loratadine 10 mg p.o. bedtime. 2. Aspirin 81 mg p.o. bedtime. 3. Multivitamin 1 cap p.o. bedtime. 4. Lisinopril/hydrochlorothiazide 07/05.5 one tab p.o. bedtime. 5. Vitamin D3 2000 units p.o. bedtime. 6. Wellbutrin XL 150 mg p.o. bedtime. 7. Acetaminophen 975 mg p.o. q.8 hours. 8. Eliquis 2.5 mg p.o. b.i.d. for 30 days. 9. Docusate 100 mg p.o. b.i.d. 10. Percocet 5/325 one to two tabs every 4 to 6 hours as needed for pain, max daily dose of 10. DISCHARGE PLAN: The patient will be discharged to home. DVT prophylaxis Eliquis 2.5 mg every 12 hours for 30 days. Pain control Percocet 5/325 one to two tabs by mouth every 4 to 6 hours as needed for pain, max daily dose of 10 tabs. Follow up with Dr. Sr in 10 to 14 days. RIKKI CHUN, YOUSUF [id number]/[facility] #: [id number] [facility]
[2018-10-12] MEDS ORDERED: Scopolamine PATCH Remove* 1 NOTE MISC PATCH OFF ONE (06:00)
== END 2018-10-10 18:20 | disposition home health service (06) | DRG 302 ==
LOC: AA 09:33 → SSU 15:31
PROVIDERS: ADMIT Orthopaedic Surgery Adult Reconstructive Orthopaedic Surgery; ATTEND Orthopaedic Surgery Adult Reconstructive Orthopaedic Surgery
PROC: 0SRD069 Replacement of Left Knee Joint with Oxidized Zirconium on Polyethylene Synthetic Substitute, Cemented, Open Approach (ICD-10-PCS; principal; 2018-10-09 13:00)
DX: M17.12 Unilateral primary osteoarthritis, left knee (principal); I10 Essential (primary) hypertension; M25.462 Effusion, left knee; J45.909 Unspecified asthma, uncomplicated; F32.9 Major depressive disorder, single episode, unspecified; M25.762 Osteophyte, left knee; Z88.2 Allergy status to sulfonamides; Z88.8 Allergy status to other drugs, medicaments and biological substances; Z79.82 Long term (current) use of aspirin; Z72.89 Other problems related to lifestyle; Z90.89 Acquired absence of other organs; Z82.49 Family history of ischemic heart disease and other diseases of the circulatory system; Z82.61 Family history of arthritis; Z80.8 Family history of malignant neoplasm of other organs or systems; Z82.3 Family history of stroke; Z84.1 Family history of disorders of kidney and ureter
CPT/HCPCS: 36415; 80048; 85014; 85018; 85049; 85610; 88305; 88311; A9270-GY; C1776; J0690; J1100; J1650; J2250; J2405; J2704; J2795; J3010